=== PATIENT | male | born 1995 | race Caucasian/White ===

== ENCOUNTER 2017-02-02 12:22 | Emergency (ER) | payer OTHER ==
[~2017-02-02] VITALS: Ht 193 cm; Wt 110.0 kg
[2017-02-02 12:27] VITALS: TEMP 37.2; Ht 193 cm; Wt 110.0 kg
[2017-02-02] MEDS ORDERED: ONDANSETRON INJ 2 MG/ML 2 ML VIAL IV STA (12:31)
[2017-02-02] MEDS ORDERED: MoRPHine SULFATE 4 MG/ML 1 ML CARP\\VIAL IV STA (12:35)
[2017-02-02] MEDS ORDERED: MoRPHine SULFATE 10 MG/ML CARP/VIAL IV STA (12:37)
--- NOTE | 2017-02-02 12:44 | DIAGNOSTIC IMAGING REPORT ---
CHEST ONE VIEW PORTABLE CLINICAL HISTORY: 21 years-old Male presenting with abd pain. TECHNIQUE: Portable upright AP view of the chest was obtained. COMPARISON: None. FINDINGS: Cardiomediastinal silhouette normal. Lungs and pleural spaces clear. Osseous structures normal. Upper abdomen normal. IMPRESSION: 1. No acute cardiopulmonary disease. Electronically signed by: John Ann M.D. 02/02/2017 12:43 PM Dictated Date/Time: 02/02/2017 12:42 PM
[2017-02-02] MEDS ORDERED: SODIUM CHLORIDE 0.9% 1000ML 1,000 ML IV ONE (12:45)
[2017-02-02 13:06] LABS: BASO % 0.2 %; BASO ABS # 0.02 K/uL (0-0.2); COMPLETE YES; EOS % 0.3 %; HEMATOCRIT 41.9 % (42-52); IG% 0.6 %; LYMPH % 16.9 %; LYMPH ABS # 2.15 K/uL (1.2-3.4); MEAN CELL VOLUME 87.5 fL (80-100); MEAN CORPUSCULAR HEMOGLOBIN 30.7 pg (25-34); MEAN CORPUSCULAR HGB CONC 35.1 g/dl (32-36); MEAN PLATELET VOLUME 9.3 fL (7.4-10.4); MONO % 7.1 %; NEUT % 74.9 %; PLATELET COUNT 358 K/uL (130-400); RED BLOOD COUNT 4.79 M/uL (4.7-6.1); WHITE BLOOD COUNT 12.74 K/uL (4.8-10.8)
[2017-02-02 13:22] LABS: BUN/CREATININE RATIO 9.4 (10-20); CALCIUM 9.9 mg/dl (8.5-10.1); CREATININE 1.2 mg/dl (0.60-1.40); POTASSIUM 3.8 mmol/L (3.5-5.1)
[2017-02-02 13:29] LABS: INR 1.1 (0.9-1.1); PARTIAL THROMBOPLASTIN RATIO 0.9; PROTHROMBIN TIME (PATIENT) 11.7 SECONDS (9.0-12.0)
--- NOTE | 2017-02-02 13:29 | EMERGENCY ROOM VISIT NOTE ---
History First contact with patient: 12:32 Chief Complaint: ABDOMINAL PAIN Stated Complaint: ABDOMINAL PAIN Nursing Triage Summary: sudden onset of severe abd pain in all 4 quads pt had surgery to repair right tib/fib labor day weekend leg healing well pt had normal bm last night pt crying and difficult to get comfortable pt has pain in rlq actively vomiting in er History of Present Illness The patient is a 21 year old male who presents to the Emergency Room with complaints of severe abdominal pain which started suddenly approx 2 hours [employer]. The patient was a poor historian secondary to pain. He notes he is having lower back pain as well as diffuse abdominal pain. His last BM was yesterday and it was "normal" The patient was not eating on the onset of pain. He is also suffering from nausea and vomiting. He denies any fever, chest pain, hematuria or change in bm. No history of appendectomy or cholecystectomy. Review of Systems Limited ROS as patient was not cooperative during interview Family History Patient reports no known family medical history. Social History Smoking Status: Never Smoker Smokeless Tobacco Use: No Alcohol Use: none Drug Use: none Marital Status: single Housing Status: lives alone Current/Historical Medications No Active Prescriptions or Reported Meds Physical Exam Vital Signs Date Time Temp Pulse Resp B/P (MAP) Pulse Ox O2 Delivery O2 Flow Rate FiO2 02/02/17 15:10 79 20 143/82 99 Room Air 02/02/17 14:33 76 16 137/88 98 Room Air 02/02/17 12:27 37.2 107 20 170/71 97 Room Air Physical Exam General: ambulatory, in moderate acute distress Skin: no rashes noted, no suspicious lesions, no areas of inflammations/ lacerations/ erythema noted CVS: S1/ S2 noted, RRR, no rubs/ murmurs noted, no cyanosis RVS: Clear throughout bilaterally, not in acute respiratory distress, no wheezing/ rales/ crackles noted ENT: no erythema/ injection/ ulcerations noted in the pharynx, no lymphadenopathy Neck: inspection WNL, full ROM of neck ABD: BSx4, mild pain/ tenderness on palpation throughout abdomen without rebound , no organomegaly, negative murphys, psoas, Rovsing, CVA tenderness MSK: inspection of all limbs WNL, motor and sensation intact in all limbs, no swelling/ pain on palpation of joints Lymph: No lymphadenopathy palpable Medical Decision & Procedures ER Provider Diagnostic Interpretation: ABD/PELVIS WITHOUT FOR STONE CLINICAL HISTORY: 21 years-old Male presenting with blood in ua, back pain . TECHNIQUE: Multidetector CT of the abdomen and pelvis was performed without the use of intravenous contrast. IV contrast: None. A dose lowering technique was used consistent with the principles of ALARA (as low as reasonably achievable). COMPARISON: None. CT DOSE (mGy.cm): The estimated cumulative dose is 1301.60 mGy.cm. FINDINGS: [employer] [place] topogram: Unremarkable. Lung bases: Lung bases clear. Normal heart size. No pericardial or pleural effusion. Liver: Normal morphology. Normal density. Biliary: No gross biliary ductal dilatation allowing for noncontrast technique. Normal gallbladder. Pancreas: Mild parenchymal atrophy. Spleen: Normal noncontrast appearance. Adrenal glands: Normal noncontrast appearance. Kidneys and ureters: Mild right perinephric fat stranding centered at the renal pelvis with associated periureteral fat stranding. Mild urothelial thickening. A partially obstructing 1 to 2 mm calculus in the right ureterovesical junction noted. No additional renal calculus. No significant hydronephrosis although mild right hydroureter is present. Left ureter normal. Bladder: Incompletely evaluated secondary to underdistention. Pelvic organs: Prostate and seminal vesicles normal. Bowel: Normal appendix. No bowel obstruction. Peritoneal cavity: No free fluid or intraperitoneal gas. Vasculature: Normal noncontrast appearance. Lymph nodes: Numerous scattered small lymph nodes throughout the retroperitoneum and mesentery, nonspecific. No pathologically enlarged lymph nodes. Abdominal wall: Normal. Musculoskeletal: Normal. IMPRESSION: 1. Partially obstructing 1 to 2 mm calculus in the right ureterovesical junction. This results in right hydroureter, although no right hydronephrosis is present at this time. No additional renal calculus. 2. Numerous scattered lymph nodes in the abdomen and pelvis, nonspecific. These may be reactive. No pathologically enlarged nodes. Laboratory Results 02/02/17 12:56 Red Blood Count 4.79, Mean Corpuscular Volume 87.5, Mean Corpuscular Hemoglobin 30.7, Mean Corpuscular Hemoglobin Concent 35.1, Mean Platelet Volume 9.3, Neutrophils (%) (Auto) 74.9, Lymphocytes (%) (Auto) 16.9, Monocytes (%) (Auto) 7.1, Eosinophils (%) (Auto) 0.3, Basophils (%) (Auto) 0.2, Neutrophils # (Auto) 9.55, Lymphocytes # (Auto) 2.15, Monocytes # (Auto) 0.90, Eosinophils # (Auto) 0.04, Basophils # (Auto) 0.02 02/02/17 12:56 Test 02/02/17 12:56 02/02/17 14:23 02/02/17 15:05 White Blood Count 12.74 K/uL (4.8-10.8) Red Blood Count 4.79 M/uL (4.7-6.1) Hemoglobin 14.7 g/dL (14.0-18.0) Hematocrit 41.9 % (42-52) Mean Corpuscular Volume 87.5 fL (80-100) Mean Corpuscular Hemoglobin 30.7 pg (25-34) Mean Corpuscular Hemoglobin Concent 35.1 g/dl (32-36) Platelet Count 358 K/uL (130-400) Mean Platelet Volume 9.3 fL (7.4-10.4) Neutrophils (%) (Auto) 74.9 % Lymphocytes (%) (Auto) 16.9 % Monocytes (%) (Auto) 7.1 % Eosinophils (%) (Auto) 0.3 % Basophils (%) (Auto) 0.2 % Neutrophils # (Auto) 9.55 K/uL (1.4-6.5) Lymphocytes # (Auto) 2.15 K/uL (1.2-3.4) Monocytes # (Auto) 0.90 K/uL (0.11-0.59) Eosinophils # (Auto) 0.04 K/uL (0-0.5) Basophils # (Auto) 0.02 K/uL (0-0.2) RDW Standard Deviation 40.2 fL (36.4-46.3) RDW Coefficient of Variation 12.5 % (11.5-14.5) Immature Granulocyte % (Auto) 0.6 % Immature Granulocyte # (Auto) 0.08 K/uL (0.00-0.02) Prothrombin Time 11.7 SECONDS (9.0-12.0) Prothromb Time International Ratio 1.1 (0.9-1.1) Activated Partial Thromboplast Time 23.6 SECONDS (21.0-31.0) Partial Thromboplastin Ratio 0.9 Anion Gap 10.0 mmol/L (3-11) Est Creatinine Clear Calc Drug Dose 134.5 ml/min Estimated GFR () 101.0 Estimated GFR (Non- 87.1 BUN/Creatinine Ratio 9.4 (10-20) Calcium Level 9.9 mg/dl (8.5-10.1) Total Bilirubin 0.7 mg/dl (0.2-1) Aspartate Amino Transf (AST/SGOT) 14 U/L (15-37) Alanine Aminotransferase (ALT/SGPT) 28 U/L (12-78) Alkaline Phosphatase 97 U/L (45-117) Total Protein 8.6 gm/dl (6.4-8.2) Albumin 4.3 gm/dl (3.4-5.0) Globulin 4.3 gm/dl (2.5-4.0) Albumin/Globulin Ratio 1.0 (0.9-2) Lipase 116 U/L (73-393) Urine WBC (Auto) 1-5 /hpf (0-5) Urine RBC (Auto) >30 /hpf (0-4) Urine Hyaline Casts (Auto) 1-5 /lpf (0-5) Urine Epithelial Cells (Auto) 5-10 /lpf (0-5) Urine Bacteria (Auto) NEG (NEG) Medications Administered Medications (Trade) Dose Ordered Sig/Lauryn Route Start Time Stop Time Status Last Admin Dose Admin Sodium Chloride 1,000 ml @ 999 mls/hr Q1H1M ONCE IV 02/02/17 12:45 02/02/17 13:45 DC 02/02/17 12:45 999 MLS/HR Ondansetron HCl (Zofran Inj) 4 mg NOW STAT IV 02/02/17 12:31 02/02/17 12:32 DC 02/02/17 13:04 4 MG Morphine Sulfate (MoRPHine SULFATE INJ) 8 mg NOW STAT IV 02/02/17 12:37 02/02/17 12:38 DC 02/02/17 13:04 8 MG Medical Decision Differential diagnosis: Etiologies such as appendicitis, diverticulitis, nephrolithiasis biliary pathology, UTI, pancreatitis, obstruction, mesenteric ischemia, aortic pathology , infections, inflammatory bowel disease, renal colic, as well as others were entertained. Patient was evaluated for acute abdominal and back pain. As the patient was extremely distressed on admission the patient received 8 mg of morphine and pain completely resolved. He was able to then give us a urine sample which did have some occult blood. Considering the acute nature and blood in urine there was concern for nephrolithiasis and it was decided to have a CT scan to assess for stone. The patient was found to have a partially obstructing 1-2mm stone on the right side. The patient was placed on Flomax and norco for pain control and also given a strainer for his urine. Plan for discharge with close follow up with PCP as patient does not have any CAMILA and pain is controlled. [place] Drug Monitoring Program Search Results: patient reviewed within database, no issues identified Blood Pressure Screening Patient's blood pressure: Elevated blood pressure Blood pressure disposition: Elevated BP felt to be situational Impression Primary Impression: Nephrolithiasis Departure Information Dispostion Home / Self-Care Condition GOOD Prescriptions No Active Prescriptions or Reported Meds Referrals No Doctor, Assigned (PCP) Patient Instructions [facility]
[2017-02-02 14:38] LABS: URINE APPEARANCE CLEAR (CLEAR); URINE BILIRUBIN NEG (NEG); URINE COLOR YELLOW; URINE NITRITE NEG (NEG); URINE SPECIFIC GRAVITY 1.017 (1.000-1.030); UROBILINOGEN NEG (NEG); ZZUR CULT IF INDIC CLEAN CATCH NO
[2017-02-02 14:39] LABS: MANUAL MICROSCOPIC REQUIRED? NO; REVIEW REQ? NO
[2017-02-02 15:10] VITALS: BP 143/82; PULSE 79; O2SAT 99
--- NOTE | 2017-02-02 15:13 | DIAGNOSTIC IMAGING REPORT ---
ABD/PELVIS WITHOUT FOR STONE CLINICAL HISTORY: 21 years-old Male presenting with blood in ua, back pain . TECHNIQUE: Multidetector CT of the abdomen and pelvis was performed without the use of intravenous contrast. IV contrast: None. A dose lowering technique was used consistent with the principles of ALARA (as low as reasonably achievable). COMPARISON: None. CT DOSE (mGy.cm): The estimated cumulative dose is 1301.60 mGy.cm. FINDINGS: [employer] topogram: Unremarkable. Lung bases: Lung bases clear. Normal heart size. No pericardial or pleural effusion. Liver: Normal morphology. Normal density. Biliary: No gross biliary ductal dilatation allowing for noncontrast technique. Normal gallbladder. Pancreas: Mild parenchymal atrophy. Spleen: Normal noncontrast appearance. Adrenal glands: Normal noncontrast appearance. Kidneys and ureters: Mild right perinephric fat stranding centered at the renal pelvis with associated periureteral fat stranding. Mild urothelial thickening. A partially obstructing 1 to 2 mm calculus in the right ureterovesical junction noted. No additional renal calculus. No significant hydronephrosis although mild right hydroureter is present. Left ureter normal. Bladder: Incompletely evaluated secondary to underdistention. Pelvic organs: Prostate and seminal vesicles normal. Bowel: Normal appendix. No bowel obstruction. Peritoneal cavity: No free fluid or intraperitoneal gas. Vasculature: Normal noncontrast appearance. Lymph nodes: Numerous scattered small lymph nodes throughout the retroperitoneum and mesentery, nonspecific. No pathologically enlarged lymph nodes. Abdominal wall: Normal. Musculoskeletal: Normal. IMPRESSION: 1. Partially obstructing 1 to 2 mm calculus in the right ureterovesical junction. This results in right hydroureter, although no right hydronephrosis is present at this time. No additional renal calculus. 2. Numerous scattered lymph nodes in the abdomen and pelvis, nonspecific. These may be reactive. No pathologically enlarged nodes. Electronically signed by: John Ann M.D. 02/02/2017 3:12 PM Dictated Date/Time: 02/02/2017 3:06 PM
[2017-02-02] MEDS ORDERED: TAMS0.4C38 PO (15:29)
[2017-02-02] MEDS ORDERED: HYDR-5688 PO (15:29)
--- NOTE | 2017-02-02 18:41 | EMERGENCY ROOM VISIT NOTE ---
History Report prepared by Chaseibe: Zully Blake Under the Supervision of: Dr. Grant Castaneda D.O. First contact with patient: 12:32 Chief Complaint: ABDOMINAL PAIN Stated Complaint: ABDOMINAL PAIN Nursing Triage Summary: sudden onset of severe abd pain in all 4 quads pt had surgery to repair right tib/fib labor day weekend leg healing well pt had normal bm last night pt crying and difficult to get comfortable pt has pain in rlq actively vomiting in er History of Present Illness The patient is a 21 year old male who presents to the Emergency Room with complaints of persistent abdominal pain for the past 2 hours. He rates his pain as a 10/10 in severity and describes it as feeling like "gas pain". His discomfort is located in "all 4 quadrants". He also has some tenderness in his low back. His last BM was "either yesterday or the day before", he cannot remember. He still has both his gallbladder and appendix. He vomited upon arrival to the ED this morning. He denies any chronic medical problems. He underwent a right tibia/fibula repair in early January and states he is no longer taking narcotics. The patient denies headache, change in vision, fevers, chest pain, shortness of breath, diarrhea, pain with urination, and melena. He has no chronic medical problems and takes no daily medication. 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 A total of 10 systems reviewed and were otherwise negative. Past Medical & Surgical Medical Problems: (1) No significant past medical history Social History Smoking Status: Never Smoker Alcohol Use: occasionally Drug Use: none Marital Status: single Housing Status: lives with roommate Occupation Status: [employer] student Current/Historical Medications Scheduled Tamsulosin Hcl (Flomax), 0.4 MG PO DAILY Scheduled PRN Hydrocodone/Acetaminophen 5MG/325MG (Blessing 5MG/325MG), 1 TABLET PO Q6H PRN for Pain Allergies Coded Allergies: No Known Allergies (Unverified , 02/02/17) Physical Exam Vital Signs Date Time Temp Pulse Resp B/P (MAP) Pulse Ox O2 Delivery O2 Flow Rate FiO2 02/02/17 15:10 79 20 143/82 99 Room Air 02/02/17 14:33 76 16 137/88 98 Room Air 02/02/17 12:27 37.2 107 20 170/71 97 Room Air Physical Exam GENERAL: Patient is alert, sitting up in bed, tearful and crying, non-toxic EYE EXAM: Conjunctiva injected OROPHARYNX: no exudate, no erythema, lips, buccal mucosa, and tongue normal and mucous membranes are moist NECK: supple, no nuchal rigidity, no adenopathy, non-tender LUNGS: Clear to auscultation. Normal chest wall mechanics HEART: Tachycardic heart rate, regular rhythm, no murmurs, S1 normal and S2 normal ABDOMEN: abdomen soft, non-tender, normo-active bowel sounds, no masses, no rebound or guarding. BACK: Faint tenderness over right lower SI joint. Back is symmetrical on inspection and there is no deformity, no midline tenderness, no CVA tenderness. SKIN: no rashes and no bruising UPPER EXTREMITIES: upper extremities are grossly normal. LOWER EXTREMITIES: No pitting edema. NEURO EXAM: Normal sensorium, cranial nerves II-XII grossly intact, normal speech, no gross weakness of arms, no gross weakness of legs. Gross sensation intact. Medical Decision & Procedures ER Provider Diagnostic Interpretation: Radiology results as stated below per my review and the radiologist's interpretation: ABD/PELVIS WITHOUT FOR STONE CLINICAL HISTORY: 21 years-old Male presenting with blood in ua, back pain . TECHNIQUE: Multidetector CT of the abdomen and pelvis was performed without the use of intravenous contrast. IV contrast: None. A dose lowering technique was used consistent with the principles of ALARA (as low as reasonably achievable). COMPARISON: None. CT DOSE (mGy.cm): The estimated cumulative dose is 1301.60 mGy.cm. FINDINGS: [place]er topogram: Unremarkable. Lung bases: Lung bases clear. Normal heart size. No pericardial or pleural effusion. Liver: Normal morphology. Normal density. Biliary: No gross biliary ductal dilatation allowing for noncontrast technique. Normal gallbladder. Pancreas: Mild parenchymal atrophy. Spleen: Normal noncontrast appearance. Adrenal glands: Normal noncontrast appearance. Kidneys and ureters: Mild right perinephric fat stranding centered at the renal pelvis with associated periureteral fat stranding. Mild urothelial thickening. A partially obstructing 1 to 2 mm calculus in the right ureterovesical junction noted. No additional renal calculus. No significant hydronephrosis although mild right hydroureter is present. Left ureter normal. Bladder: Incompletely evaluated secondary to underdistention. Pelvic organs: Prostate and seminal vesicles normal. Bowel: Normal appendix. No bowel obstruction. Peritoneal cavity: No free fluid or intraperitoneal gas. Vasculature: Normal noncontrast appearance. Lymph nodes: Numerous scattered small lymph nodes throughout the retroperitoneum and mesentery, nonspecific. No pathologically enlarged lymph nodes. Abdominal wall: Normal. Musculoskeletal: Normal. IMPRESSION: 1. Partially obstructing 1 to 2 mm calculus in the right ureterovesical junction. This results in right hydroureter, although no right hydronephrosis is present at this time. No additional renal calculus. 2. Numerous scattered lymph nodes in the abdomen and pelvis, nonspecific. These may be reactive. No pathologically enlarged nodes. Electronically signed by: John Ann M.D. 02/02/2017 3:12 PM CHEST ONE VIEW PORTABLE CLINICAL HISTORY: 21 years-old Male presenting with abd pain. TECHNIQUE: Portable upright AP view of the chest was obtained. COMPARISON: None. FINDINGS: Cardiomediastinal silhouette normal. Lungs and pleural spaces clear. Osseous structures normal. Upper abdomen normal. IMPRESSION: 1. No acute cardiopulmonary disease. Electronically signed by: John Ann M.D. 02/02/2017 12:43 PM Laboratory Results 02/02/17 12:56 Red Blood Count 4.79, Mean Corpuscular Volume 87.5, Mean Corpuscular Hemoglobin 30.7, Mean Corpuscular Hemoglobin Concent 35.1, Mean Platelet Volume 9.3, Neutrophils (%) (Auto) 74.9, Lymphocytes (%) (Auto) 16.9, Monocytes (%) (Auto) 7.1, Eosinophils (%) (Auto) 0.3, Basophils (%) (Auto) 0.2, Neutrophils # (Auto) 9.55, Lymphocytes # (Auto) 2.15, Monocytes # (Auto) 0.90, Eosinophils # (Auto) 0.04, Basophils # (Auto) 0.02 02/02/17 12:56 Test 02/02/17 12:56 02/02/17 14:23 White Blood Count 12.74 K/uL (4.8-10.8) Red Blood Count 4.79 M/uL (4.7-6.1) Hemoglobin 14.7 g/dL (14.0-18.0) Hematocrit 41.9 % (42-52) Mean Corpuscular Volume 87.5 fL (80-100) Mean Corpuscular Hemoglobin 30.7 pg (25-34) Mean Corpuscular Hemoglobin Concent 35.1 g/dl (32-36) Platelet Count 358 K/uL (130-400) Mean Platelet Volume 9.3 fL (7.4-10.4) Neutrophils (%) (Auto) 74.9 % Lymphocytes (%) (Auto) 16.9 % Monocytes (%) (Auto) 7.1 % Eosinophils (%) (Auto) 0.3 % Basophils (%) (Auto) 0.2 % Neutrophils # (Auto) 9.55 K/uL (1.4-6.5) Lymphocytes # (Auto) 2.15 K/uL (1.2-3.4) Monocytes # (Auto) 0.90 K/uL (0.11-0.59) Eosinophils # (Auto) 0.04 K/uL (0-0.5) Basophils # (Auto) 0.02 K/uL (0-0.2) RDW Standard Deviation 40.2 fL (36.4-46.3) RDW Coefficient of Variation 12.5 % (11.5-14.5) Immature Granulocyte % (Auto) 0.6 % Immature Granulocyte # (Auto) 0.08 K/uL (0.00-0.02) Prothrombin Time 11.7 SECONDS (9.0-12.0) Prothromb Time International Ratio 1.1 (0.9-1.1) Activated Partial Thromboplast Time 23.6 SECONDS (21.0-31.0) Partial Thromboplastin Ratio 0.9 Anion Gap 10.0 mmol/L (3-11) Est Creatinine Clear Calc Drug Dose 134.5 ml/min Estimated GFR () 101.0 Estimated GFR (Non- 87.1 BUN/Creatinine Ratio 9.4 (10-20) Calcium Level 9.9 mg/dl (8.5-10.1) Total Bilirubin 0.7 mg/dl (0.2-1) Aspartate Amino Transf (AST/SGOT) 14 U/L (15-37) Alanine Aminotransferase (ALT/SGPT) 28 U/L (12-78) Alkaline Phosphatase 97 U/L (45-117) Total Protein 8.6 gm/dl (6.4-8.2) Albumin 4.3 gm/dl (3.4-5.0) Globulin 4.3 gm/dl (2.5-4.0) Albumin/Globulin Ratio 1.0 (0.9-2) Lipase 116 U/L (73-393) Urine Color YELLOW Urine Appearance CLEAR (CLEAR) Urine pH 6.0 (4.5-7.5) Urine Specific [place] 1.017 (1.000-1.030) Urine Protein TRACE (NEG) Urine Glucose (UA) NEG (NEG) Urine Ketones TRACE (NEG) Urine Occult Blood 3+ (NEG) Urine Nitrite NEG (NEG) Urine Bilirubin NEG (NEG) Urine Urobilinogen NEG (NEG) Urine Leukocyte Esterase NEG (NEG) Urine WBC (Auto) 1-5 /hpf (0-5) Urine RBC (Auto) >30 /hpf (0-4) Urine Hyaline Casts (Auto) 1-5 /lpf (0-5) Urine Epithelial Cells (Auto) 5-10 /lpf (0-5) Urine Bacteria (Auto) NEG (NEG) Laboratory results per my review. Medications Administered Medications (Trade) Dose Ordered Sig/Lauryn Route Start Time Stop Time Status Last Admin Dose Admin Sodium Chloride 1,000 ml @ 999 mls/hr Q1H1M ONCE IV 02/02/17 12:45 02/02/17 13:45 DC 02/02/17 12:45 999 MLS/HR Ondansetron HCl (Zofran Inj) 4 mg NOW STAT IV 02/02/17 12:31 02/02/17 12:32 DC 02/02/17 13:04 4 MG Morphine Sulfate (MoRPHine SULFATE INJ) 8 mg NOW STAT IV 02/02/17 12:37 02/02/17 12:38 DC 02/02/17 13:04 8 MG ED Course ED COURSE: Vital signs were reviewed and showed the patient is hypertensive. The patients medical record was reviewed The above diagnostic studies were performed and reviewed. ED treatments and interventions as stated above. 1231: Zofran 4 mg IV. 1235: Morphine Sulfate 4 mg IV. 1237: Morphine Sulfate 8 mg IV. 1240: The patient was evaluated in room B11. A complete history and physical examination was performed. 1245: NSS 1000 ml @ 999 mls/hr IV. 1305: I reevaluated the patient. He is much more comfortable. 1330: I reevaluated the patient. He is resting comfortably. 1400: I reevaluated the patient. He still has not urinated but he is feeling much better and is texting on his phone. 1450: Upon reevaluation, the patient is completely pain free. I discussed my findings with the patient and he understands and agrees with the treatment plan. Based on the patients age, coexisting illnesses, exam and lab findings the decision to treat as an outpatient was made. The patient remained stable while under my care. The patient appeared well at the time of discharge. Medical Decision Etiologies such as renal colic, appendicitis, diverticulitis, mesenteric ischemia, aortic pathology, infections, inflammatory bowel disease, PUD, biliary pathology, UTI, as well as others were entertained. Patient is a 21-year-old male emulating in the room in moderate distress. Complaints of left flank pain. UA has hematuria but no signs of infection.. CBC shows a mild leukocytosis. BMP all LFTs, bilirubin and lipase was unremarkable. CT showed 2 mm calculus. Patient was updated in regards to his findings. He was given IV morphine with complete resolution of symptoms. His updated bedside. He was discharged with hydronephrosis and renal colic to follow-up with urology as an outpatient. PDMP was reviewed. Discussed with Pt concerning signs and symptoms to watch out for. Pt was instructed to follow up with their PCP and discussed with the patient their option to return to the ED at anytime for persistent or worsening symptoms. The appropriate anticipatory guidance and out-patient management, including indications for return to the emergency department, were explained at length to the patient and understood. [place] Drug Monitoring Program Search Results: patient reviewed within database, no issues identified Medication Reconcilliation Current Medication List: was personally reviewed by me Blood Pressure Screening Patient's blood pressure: Elevated blood pressure Blood pressure disposition: Elevated BP felt to be situational Impression Primary Impression: Renal colic on left side Additional Impressions: Hydroureter Nephrolithiasis Scribe Attestation The scribe's documentation has been prepared under my direction and personally reviewed by me in its entirety. I confirm that the note above accurately reflects all work, treatment, procedures, and medical decision making performed by me. Departure Information Dispostion Home / Self-Care Prescriptions Tamsulosin Hcl (FLOMAX) 0.4 Mg Cap 0.4 MG PO DAILY, #10 CAP Prov: Grant CastanedaSukhwinder, DO 02/02/17 Hydrocodone/Acetaminophen 5MG/325MG (Blessing 5MG/325MG) Tab 1 TABLET PO Q6H Y for Pain, #15 TAB PRN PAIN Prov: Leonel Grant Penaloza, DO 02/02/17 Patient Instructions ED Stone Renal W Colic, My [facility] Additional Instructions You are suffering from nephrolithiasis, the other common name for this is a kidney stone. We have prescribed you a medication which can relax the urinary system to help pass the stone. We reccomend you strain the urine for the stone and once you visualize the stone you can stop the medication. We have also prescribed you a pain medication. Please do not drive or drink with this medication as this medication can make you feel drowsy. Please follow up with your PCP in the next week. Either follow up at [facility] or a [facility] medical office. His follow-up with Urology as listed below within one week. You were given medications during this visit that will inhibit your ability to drive, operate machinery and work. Please do NOT drive, operate machinery or work for the next 12hrs. You were also given a prescription for a narcotic. While taking this medication you should also not drive, operate machinery and or work. Please follow up with your primary care doctor or if you are a student, [facility] with in the next 24 hours. Any worsening of your symptoms, please return to the ED immediately. This includes any fevers greater than 100.4, worsening pain, chest pain, shortness breath, persistent nausea, vomiting, unable to eat or drink, or any other concerning signs or symptoms from your standpoint. Any fevers 100.4 please return immediately to the ER. Problem Qualifiers
== END 2017-02-02 15:33 | disposition home or self-care (01) ==
LOC: EDBD 12:22 → C.EDB 12:24
DX: N23 Unspecified renal colic (principal); N13.4 Hydroureter; N20.0 Calculus of kidney